=== PATIENT | female | born 1955 | race Caucasian/White ===

== ENCOUNTER 2016-11-25 13:29 | Observation (INO) | payer OTHER ==
--- NOTE | 2016-11-25 13:50 | EDPHY ---
H & P Stated Complaint: feels like is in afib since last night/has biventricular defibrillator Time Seen by Provider: 11/25/16 13:50 Source: Patient - Personal History Current Tetanus/Diphtheria Vaccine: Yes - Medical/Surgical History Hx Asthma: No Hx Chronic Respiratory Disease: No Hx Diabetes: No Hx Cardiac Disease: Yes Hx Renal Disease: No Hx Cirrhosis: No Hx Alcoholism: No Hx HIV/AIDS: No Hx Splenectomy or Spleen Trauma: No Other PMH: cradiac valves replaced -, afib with cardioversion//. nocturnal o2, has been using x 2 nights and evenings//. hyst, lumpectomy w radiation - Social History Smoking Status: Never smoked Constitutional: Initial Vital Signs Temperature (C) 36.4 C 11/25/16 13:38 Heart Rate 82 11/25/16 13:38 Respiratory Rate 18 11/25/16 13:38 Blood Pressure 120/73 11/25/16 13:38 O2 Sat (%) 99 11/25/16 13:38 O2 Delivery Mode Room Air Allergies/Adverse Reactions: No Known Allergies Allergy (Verified 11/25/16 13:36) Home Medications: Medication Instructions Recorded Acetaminophen [Tylenol 325mg (*)] 650 mg PO HS 11/25/16 Aspirin EC [Aspirin EC 81 mg (*)] 81 mg PO DAILY@1930 11/25/16 Carboxymethylcellulos/Glycerin 1 drop EACHEYE BID 11/25/16 [Refresh Optive Eye Drops] Carvedilol [Coreg (*)] 3.125 mg PO DAILY 11/25/16 Carvedilol [Coreg] 12.5 mg PO DAILY@18 11/25/16 Docusate Sodium [Colace 100 MG (*)] 100 mg PO HS 11/25/16 Herbals/Supplements -Info Only 1 ea PO DAILY 11/25/16 Levothyroxine [Synthroid 50 mcg 50 mcg PO DAILY06 11/25/16 (*)] [place]-3 Fatty Acids [Fish Oil 1000 1,000 mg PO BID 11/25/16 mg (*)] Sacubitril/Valsartan 24/26Mg 1 ea PO BID 11/25/16 [Entresto 24 mg/26 mg (RX)] Spironolactone [Aldactone 25 MG 12.5 mg PO DAILY 11/25/16 (*)] Vit C/Dl-E AC/Lut/Copper/Znox 1 each PO BID 11/25/16 [Preservision Softgel] diphenhydrAMINE [Benadryl 25 MG 25 mg PO HS 11/25/16 (*)] Medical Decision Making ED Course/Re-evaluation: CHIEF COMPLAINT: Atrial fibrillation HISTORY OF PRESENT ILLNESS: The patient is a 61-year-old female with history if mitral valve repair and pacamaker, presenting with atrial fibrillation according to her night monitor. The patient states she was unable to sleep last night. When she was lying on her left side she could feel a pounding sensation. No associated chest pain or shortness of breath. This morning took her blood pressure at 10:30 a.m. she was 110 systolically, her usual BP is 80/ 50. Pulse oximeter was erratic, she was found to have pulse of 91 at one point. She called her device monitor which showed patient had been in atrial fibrillation since 9:55 p.m. last night. The patient recently changed Entresto and was taken off Lasix. She is on Coreg. No anticoagulants. REVIEW OF SYSTEMS: A 10 point review of systems was performed and is negative with the exception of the elements mentioned in the history of present illness. PHYSICAL EXAM: HR, BP, O2 Sat, RR. Temp noted General Appearance: Alert, well hydrated, appropriate, and non-toxic appearing. Head: Atraumatic without scalp tenderness or obvious injury Eyes: Pupils equal, round, reactive to light and accommodation, EOMI, no trauma , no injection. Ears: Clear bilaterally, no perforation, normal landmarks Nose: Atraumatic, no rhinorrhea, clear. Throat: There is no erythema or exudates, no lesions, normal tonsils, mucus membranes moist. Neck: Supple, 2+ carotid upstroke, nontender, no lymphadenopathy. Respiratory: No retractions, no distress, no wheezes, and no accessory muscle use. Lungs are clear to auscultation bilaterally. Cardiovascular: Regular rate and rhythm, no murmurs, rubs, or gallops. Bilateral carotid, radial, dorsalis pedis, and posterior tibial pulses intact. Good capillary refill all extremities. Gastrointestinal: Abdomen is soft, nontender, non-distended, no masses, no rebound, no guarding, no peritoneal signs. Musculoskeletal: Normal active ROM of all extremities, atraumatic. Neurological: Alert, appropriate, and interactive. The patient has normal DTRs and non-focal cranial nerves, motor, sensory, and cerebellar exam. Skin: No rashes, good turgor, no nodules on palpation. Past medical history: cardiac valves replaced 12-14, Afib with cardioversion, nocturnal O2, Past surgical history: hysterectomy, lumpectomy w radiation Social history: . DIAGNOSTICS/PROCEDURES/CRITICAL CARE TIME: The 12 lead EKG was interpreted by myself. See hard copy and/or "tracemaster" electronic copy for interpretation. DIFFERENTIAL DIAGNOSIS: Includes but is not limited to atrial fibrillation, malfunction pacemaker, atrial tachycardia, ventricular tachycardia. MEDICAL DECISION MAKING: Patient with pacemaker found to be in atrial fibrillation since 9:55 p.m. according to her device. EKG is paced with partially atrial paced, partially ventricular paced, and partially un-paced. I paged Balbir Esquivel, patients stna. Patient has no associated chest pain or shortness of breath. Patient also tells me recent lab work shows anemia. She has not had a recent colonoscopy and takes 81mg Aspirin daily. Plan to check electrolytes and troponin. 2:25 p.m.: I spoke to Dr. De Leon, he finds it difficult to tell if patient is in A-fib based on EKG. He would like patient admitted for transesophageal echo because of mitral valve repair followed by cardioversion. 2:30 p.m.: I discussed findings with the patient and her . They agree with plan for admission. 2:35 p.m.: I spoke to the hospitalist, the patient will be admitted to Dr. Givens. 3:30 p.m.: I spoke to Dr. Fernandez, Cardiology who will consult on the patient. - Data Points Laboratory Results: Laboratory Results 11/25/16 14:15 11/25/16 14:15 11/25/16 11/25/16 14:15 14:15 WBC 6.58 10^3/uL 10^3/uL (3.80-9.50) RBC 3.86 10^6/uL L 10^6/uL (4.18-5.33) Hgb 11.9 g/dL L g/dL (12.6-16.3) Hct 35.3 % L % (38.0-47.0) MCV 91.5 fL fL (81.5-99.8) MCH 30.8 pg pg (27.9-34.1) MCHC 33.7 g/dL g/dL (32.4-36.7) RDW 14.5 % % (11.5-15.2) Plt Count 220 10^3/uL 10^3/uL (150-400) MPV 10.5 fL fL (8.7-11.7) Neut % (Auto) 64.3 % % (39.3-74.2) Lymph % (Auto) 19.1 % % (15.0-45.0) [place] % (Auto) 12.5 % % (4.5-13.0) Eos % (Auto) 2.9 % % (0.6-7.6) Baso % (Auto) 0.9 % % (0.3-1.7) Nucleat RBC Rel Count 0.0 % % (0.0-0.2) Absolute Neuts (auto) 4.23 10^3/uL 10^3/uL (1.70-6.50) Absolute Lymphs (auto) 1.26 10^3/uL 10^3/uL (1.00-3.00) Absolute Monos (auto) 0.82 10^3/uL H 10^3/uL (0.30-0.80) Absolute Eos (auto) 0.19 10^3/uL 10^3/uL (0.03-0.40) Absolute Basos (auto) 0.06 10^3/uL 10^3/uL (0.02-0.10) Absolute Nucleated RBC 0.00 10^3/uL 10^3/uL (0-0.01) Immature Gran % 0.3 % % (0.0-1.1) Immature Gran # 0.02 10^3/uL 10^3/uL (0.00-0.10) Sodium 133 mEq/L L mEq/L (134-144) Potassium 4.9 mEq/L mEq/L (3.5-5.2) Chloride 100 mEq/L mEq/L (97-110) Carbon Dioxide 21 mEq/l L mEq/l (22-31) Anion Gap 12 mEq/L mEq/L (8-16) BUN 22 mg/dL mg/dL (7-23) Creatinine 0.8 mg/dL mg/dL (0.6-1.0) Estimated GFR > 60 Glucose 96 mg/dL mg/dL (70-100) Calcium 9.5 mg/dL mg/dL (8.5-10.4) Magnesium 2.0 mg/dL mg/dL (1.6-2.3) Troponin I < 0.012 ng/mL ng/mL (0-0.034) Departure - Departure Disposition: [facility] Inpatient Acute Clinical Impression: Arrhythmia Qualifiers: Arrhythmia type: atrial fibrillation Atrial fibrillation type: unspecified Qualified Code(s): I48.91 - Unspecified atrial fibrillation Condition: Fair Report Scribed for: Riki Srivastava Report Scribed by: Ana Grimes Date of Report: 11/25/16 Time of Report: 14:06
--- NOTE | 2016-11-25 13:57 | CPEKG ---
Heart Rate: 82 RR Interval: 732 P-R Interval: 128 QRSD Interval: 154 QT Interval: 428 QTC Interval: 500 P [place]: 0 QRS [place]: 55 T Wave [place]: -44 EKG Severity - ABNORMAL ECG - EKG Impression: A-V DUAL-PACED COMPLEXES W/ SOME INHIBITION Electronically Signed By: Riki Srivastava 25-Nov-2016 21:03:46
[2016-11-25 14:32] LABS: % IMMATURE GRANULYOCYTES 0.3 % (0.0-1.1); ABSOLUTE IMMATURE GRANULOCYTES 0.02 10^3/uL (0.00-0.10); ADD DIFF? NO; ADD MORPH? NO; ADD SCAN? NO; ATYPICAL LYMPHOCYTE FLAG 10 (0-99); FRAGMENT RBC FLAG 0 (0-99); HEMATOCRIT 35.3 % (38.0-47.0); HEMOGLOBIN 11.9 g/dL (12.6-16.3); LEFT SHIFT FLG 0 (0-99); LIPEMIA HEMOLYSIS FLAG 80 (0-99); MEAN CELL HEMOGLOBIN 30.8 pg (27.9-34.1); MEAN CELL HEMOGLOBIN CONCENTR. 33.7 g/dL (32.4-36.7); MEAN CELL VOLUME 91.5 fL (81.5-99.8); MEAN PLATELET VOLUME 10.5 fL (8.7-11.7); PLATELET CLUMPS FLAG 0 (0-99); PLATELET COUNT 220 10^3/uL (150-400); RED BLOOD CELL COUNT 3.86 10^6/uL (4.18-5.33); RED CELL DISTRIBUTION WIDTH 14.5 % (11.5-15.2)
[2016-11-25 14:54] LABS: ANION GAP 12 mEq/L (8-16); CALCIUM 9.5 mg/dL (8.5-10.4); CARBON DIOXIDE 21 mEq/l (22-31); CHLORIDE 100 mEq/L (97-110); CREATININE 0.8 mg/dL (0.6-1.0); GLOMERULAR FILTRATION RATE > 60; GLUCOSE 96 mg/dL (70-100); POTASSIUM 4.9 mEq/L (3.5-5.2); SODIUM 133 mEq/L (134-144)
[2016-11-25 15:04] LABS: TROPONIN I < 0.012 ng/mL (0-0.034)
[2016-11-25] MEDS ORDERED: ACETAMINOPHEN 325 MG TAB PO PRN (15:30)
[2016-11-25] MEDS ORDERED: ONDANSETRON 4 MG/2 ML VIAL IVP PRN (15:30)
[2016-11-25] MEDS ORDERED: ONDANSETRON DISINTEGRATING 4 MG TAB PO PRN (15:30)
--- NOTE | 2016-11-25 16:13 | GHP ---
[f rep st] HISTORY AND PHYSICAL DATE OF ADMISSION: 11/25/2016 HISTORY OF PRESENT ILLNESS: The patient is a pleasant 61-year-old female with a history of mitral a nd tricuspid valve repair, as well as previous episodes of atrial fibrillation for which she underwe nt SHYAM cardioversion. Presents to the hospital today with new atrial fibrillation. She was feeling poorly last night, having a difficult time sleeping, having palpitations and noting irregularity in her pulse ox monitor. She has a dual-lead pacemaker/AICD; she transmitted it to [facility], and it was confirmed to be atrial fibrillation. She called her fitter placer who advised her to present to the emergency department. She denies orthopnea, PND, or lower extremity edema. She slept poorl y last night, which is uncommon for her. She does not have anginal-type symptoms. She has not had urgency, frequency, or dysuria. She does have a known EF of 20% to 25%, but has been without really any significant heart failure symptoms si nce earlier in the month, and she was started on Entresto by Dr. Chavez. No fever or chills. REVIEW OF SYSTEMS: Complete 10-point review of systems conducted and negative except as noted in th e HPI. PAST MEDICAL HISTORY: 1. Mitral valve repair. 2. Tricuspid valve repair. 3. Left bundle branch block. 4. Cardiomyopathy with EF of 20% to 25%. 5. Status post biventricular AICD/dual-chamber pacer. ALLERGIES: No known drug allergies. MEDICATIONS ARE: Carvedilol, spironolactone, sacubitril/valsartan (AKA Entresto), ondansetron, fish oil, Refresh, levothyroxine, Benadryl, PreserVision. SOCIAL HISTORY: Lives in [place]. No tobacco. No alcohol. FAMILY HISTORY: Reviewed and unremarkable. PHYSICAL EXAMINATION: VITAL SIGNS: Temp 36.6, blood pressure 110/80, pulse 71 irregularly irregula r, breathing 16 times a minute, 93% on room air. GENERAL: No acute distress. HEENT: Sclerae anic teric. Oropharynx clear. Mucous membranes moist. NECK: Supple without lymphadenopathy or JVD. L UNGS: Clear to auscultation bilaterally without crackles. HEART: S1, S2. Irregularly irregular. No significant murmurs are heard. ABDOMEN: Soft, nontender, nondistended. LOWER EXTREMITIES: Wit hout edema. Calves nontender. SKIN: Without rash. NEUROLOGIC: Nonfocal. LABORATORY DATA: White count 6.6, hematocrit 35.3, platelets are 220,000. Sodium 133, potassium 4. 9, chloride 100, bicarb 21, BUN 22, creatinine 0.8. Troponin less than 0.012. I have discussed the case Dr. Riki Srivastava. EKG, interpreted by me, shows an AV dual-paced rhythm t hat is somewhat irregular. Watching on the monitor when I was in the room, there is a fair amount o f irregularity. ASSESSMENT/PLAN: A 61-year-old female with complex cardiac history presents with atrial fibrillatio n. 1. Atrial fibrillation: She is currently rate controlled. It sounds like, given her cardiomyopath y, the ideal plan is to keep her in sinus rhythm. I will make her n.p.o., SHYAM cardioversion has bee n recommended by Cardiology. She is yet to be seen by the solar sales consultant. 2. Anemia: This is stable. It sounds like it has been worked up in the past as an outpatient. Tita jean-baptiste has had SPEP sent. 3. Chronic systolic heart failure: The patient is euvolemic and not in heart failure exacerbation today. 4. Hyponatremia: Mild. Will follow. 5. Prophylaxis: Risk is moderate. I anticipate overnight stay. If she stays longer, then pharmac ologic prophylaxis would be indicated. 6. The patient has a low [id number] score, but I think this is probably valvular atrial fibrillat ion, so she may be candidate for anticoagulation irrespective of her [id number] score. I will def er this to Cardiology. DISPOSITION: Observation status. /[id number]/MODL
[2016-11-25] MEDS ORDERED: CARVEDILOL 6.25 MG TAB PO SCH (18:00)
[2016-11-25] MEDS ORDERED: NON-FORMULARY NEW DRUG (Carvedilol [Coreg] 12.5 MG) PO SCH (18:00)
[2016-11-25] MEDS: PRESERVISION AREDS2 FORMULA EYE VIT 1 EACH PO SCH (19:05)
[2016-11-25] MEDS ORDERED: ASPIRIN EC 81 MG TAB PO SCH (19:30)
[2016-11-25] MEDS ORDERED: CARBOXYMETHYLCELLULOS EACHEYE SCH (21:00)
[2016-11-25] MEDS ORDERED: DOCUSATE SODIUM 100 MG CAP PO SCH (21:00)
[2016-11-25] MEDS ORDERED: [UNRECOGNIZED DRUG - OTHER] EACHEYE SCH (21:00)
[2016-11-25] MEDS ORDERED: NON-FORMULARY NEW DRUG (Vit C/Dl-E Ac/Lut/Copper/Znox [Preservision Softgel] 1 EACH) PO SCH (21:00)
[2016-11-25] MEDS ORDERED: diphenhydrAMINE 25 MG CAP PO SCH (21:00)
[2016-11-25] MEDS ORDERED: GLYCERIN EACHEYE SCH (21:00)
[2016-11-25] MEDS: OMEGA-3 FATTY ACIDS 1,000 MG CAP PO SCH (21:02)
[2016-11-25] MEDS: SACUBITRIL/VALSARTAN 24/26MG 1 EA TAB PO SCH (21:04)
[2016-11-25] MEDS: TEARS/DEXTRAN 70/HYPROMELLOSE 15 ML OPHT.BTL EACHEYE SCH (21:04)
[2016-11-26] MEDS ORDERED: LEVOTHYROXINE 50 MCG TAB PO SCH (06:00)
[2016-11-26 07:35] LABS: INR 1.08 (0.83-1.16); PROTIME(PATIENT) 13.9 SEC (12.0-15.0)
[2016-11-26] MEDS: PRESERVISION AREDS2 FORMULA EYE VIT 1 EACH PO SCH ×2 (08:35→14:52)
[2016-11-26] MEDS ORDERED: HEPARIN 5,000 UNIT/0.5 ML SYR IV ONE (09:00)
[2016-11-26] MEDS ORDERED: Herbals/Supplements -Info Only PO SCH (09:00)
[2016-11-26] MEDS ORDERED: PROPOFOL 200 MG/20 ML VIAL ONE ×3 (09:28→09:30)
[2016-11-26] MEDS ORDERED: ATROPINE SULFATE 1 MG/10 ML SYR ONE (09:29)
[2016-11-26] MEDS: OMEGA-3 FATTY ACIDS 1,000 MG CAP PO SCH ×2 (09:34→14:50)
[2016-11-26] MEDS: SACUBITRIL/VALSARTAN 24/26MG 1 EA TAB PO SCH ×2 (09:34→14:49)
[2016-11-26] MEDS: CARVEDILOL 3.125 MG TAB PO SCH ×2 (09:34→14:51)
[2016-11-26] MEDS: SPIRONOLACTONE 25 MG TAB PO SCH ×2 (09:35→14:52)
[2016-11-26] MEDS: TEARS/DEXTRAN 70/HYPROMELLOSE 15 ML OPHT.BTL EACHEYE SCH (09:35)
--- NOTE | 2016-11-26 10:03 | CPEKG ---
Heart Rate: 64 RR Interval: 938 P-R Interval: 160 QRSD Interval: 134 QT Interval: 476 QTC Interval: 491 P [place]: 87 QRS [place]: -23 T Wave [place]: 121 EKG Severity - ABNORMAL ECG - EKG Impression: A-V DUAL-PACED RHYTHM WITH SOME INHIBITION Electronically Signed By: Shaan Caal 27-Nov-2016 12:14:43
--- NOTE | 2016-11-26 10:25 | CPIP ---
[f rep st] INVASIVE CARDIAC PROCEDURE PROCEDURES PERFORMED: 1. Transesophageal echocardiographic study. 2. Cardioversion. The patient gave informed consent for transesophageal echocardiograph and a cardioversion. I explained to the patient and her about the risk of stroke even if we have an unremarkable transesophageal echocardiographic study. They understand that there is a risk of stroke and w ith cardioversion. They understand there is a risk of infection, perforation with the transesophage al procedure. They would like to proceed. They accept the risk of an anesthetic agent. All their questions have been answered, and they have agreed to do full anticoagulation for 5 weeks. She woul d like not to continue beyond that, but I would recommend she take it long-term; however, that issue is going to be discussed with her and her primary care physicians. DESCRIPTION OF PROCEDURE: At this time, we proceeded. Transesophageal echocardiogram: She has poor LV systolic function with an ejection fraction in the range of 20%. She had a dilated left ventricle. She has a hugely enlarged left atrium. She has cortes d mitral valve procedure. She has an oversewn left atrial appendage. There were no contraindicatio ns to proceeding with cardioversion found. She tolerated that procedure well. DC cardioversion: She was shocked at 360 watt seconds and converted from atrial fibrillation to nor mal sinus rhythm. The patient's pacemaker was interrogated by the pacemaker rep who also checked her after cardioversi on and confirmed both that she was in atrial fibrillation and that she was now in sinus rhythm. She is going to proceed to having an optimization for her device now, and she has an appointment wit Dr. Chavez for followup this afternoon. Because of how difficult it is for them to seem to agree on whether or not she should take a novel o ral anticoagulant or should she take Coumadin, I have written prescriptions for both approaches, and they are going to decide over time which medicine they want to take. She wants to use a novel agen t. He wants her to use Coumadin and, if she uses Coumadin, they both understand that they will have to bridge starting today. Prior to the procedure, she received 5000 units of IV heparin half an ho ur prior to transesophageal echocardiogram. She had no complications from that. All their questions have been answered. She has woken up from anesthesia excellently. /[id number]/MODL
[2016-11-26 12:46] VITALS: BP 121/82; PULSE 62; RESP 20; TEMP 97.6; O2SAT 98
--- NOTE | 2016-11-26 13:24 | CPEKG ---
Heart Rate: 86 RR Interval: 698 P-R Interval: 168 QRSD Interval: 106 QT Interval: 412 QTC Interval: 493 QRS [place]: 25 T Wave [place]: 78 EKG Severity - ABNORMAL ECG - EKG Impression: ATRIAL-PACED COMPLEXES EKG Impression: LOW VOLTAGE IN FRONTAL LEADS EKG Impression: REPOL ABNRM, PROBABLE ISCHEMIA, ANT-LAT LEADS EKG Impression: ST ELEVATION, CONSIDER INFERIOR INJURY EKG Impression: ST/T WAVE CHANGES ARE NEW IN COMPARISON TO PRIOR Electronically Signed By: Shaan Caal 27-Nov-2016 12:15:19
--- NOTE | 2016-11-26 14:32 | GDS ---
[f rep st] DISCHARGE SUMMARY DIAGNOSES: 1. Atrial fibrillation. 2. History of mitral and tricuspid valve repairs. 3. Left bundle branch block. 4. Severe cardiomyopathy. HOSPITAL COURSE: This is a 61-year-old female with a known cardiomyopathy who presents with atrial fibrillation. She underwent a SHYAM cardioversion which was successful in putting her back into sinus rhythm. This was done by Dr. Binu Fernandez. She will be discharged with appropriate cardiac medica tions including Eliquis, Coreg, Aldactone, aspirin, valsartan. She is comfortable with this plan. She will follow up with her primary animal nutritionist, Dr. Esquivel. She does have a severe cardiomyopathy as well as some valvular disease. She is on also appropriate medications for this. She also has an AICD and biventricular pacemaker which was adjusted during [facility] hospitalization. /[id number]/MODL
--- NOTE | 2016-11-28 10:47 | ECHO ---
[id number] + + [address] : : [place] [address] : : [phone] + + Transesophageal Echocardiographic Report + + :Name: DIANNA HUGHES Study Date: 11/26/2016 09:24 AM : : Hospital Admission Number: [id number] : :: 1955 Gender: Female : :Age: 61 yrs Race: WH,White : :Reason For Study: Atrial Fibrillation : + + MMode/2D Measurements \T\ Calculations IVSd: 0.92 cm LVIDd: 5.2 cmFS: 9.5 % LVLd ap4: 8.0 cm LVPWd: 0.92 cm LVIDs: 4.7 cmEDV(Teich): 127.9 mlEDV(MOD-sp4): 81.0 ml ESV(Teich): 101.3 mlLVLs ap4: 6.9 cm EF(Teich): 20.8 % ESV(MOD-sp4): 59.0 ml EF(MOD-sp4): 27.2 % SV(MOD-sp4): 22.0 ml Normal Measurement Values: + + :LVIDd (3.5-5.7cm) IVSd (0.6-1.1cm) LVPWd (0.6-1.1cm) Aortic Root (2.0-3.7cm)Left Atrium (1.5-4.0cm): :LV Vol(d) (76-115ml) LV Vol(s) (29-48ml) Ejec Fraction (50-65%)PV Joshua (0.6- 1.2m/s) TV Joshua (0.4-1.0m/s) : :MV E Joshua (0.8-1.0m/s)MV A Joshua (0.3-1.0m/s)LVOT Joshua (0.7-1.2m/s) Asc Ao Joshua ( 0.9-1.8m/s) : + + Left Ventricle EF estimate is 20-25%. Atria The left atrial appendage has been oversewn. Mitral Valve An annuloplasty ring is noted in the mitral position. Tricuspid Valve An annuloplasty ring is noted in the tricuspid position. Aortic Valve The aortic valve is trileaflet. Conclusion A 2D transesophageal echocardiogram with color flow Doppler was performed. Proceeded with successful elective DC cardioversion. EF estimate is 20-25%. The left atrial appendage has been oversewn. An annuloplasty ring is noted in the mitral position. An annuloplasty ring is noted in the tricuspid position. Final Reading Physician: Ivette Abarca signed on 11/28/2016 10:46 AM Ordering Physician: Juan Manuel Givens Performed By: Jean Marie Fernandez MD
== END 2016-11-26 15:56 | disposition home or self-care (01) ==
LOC: F2W 15:34
PROVIDERS: ADMIT Internal Medicine; ATTEND Student in an Organized Health Care Education/Training Program
PROC: B246ZZ4 Ultrasonography of Right and Left Heart, Transesophageal (ICD-10-PCS; principal; 2016-11-25)
PROC: 5A2204Z Restoration of Cardiac Rhythm, Single (ICD-10-PCS; principal; 2016-11-25)
DX: I48.91 Unspecified atrial fibrillation (principal); I44.7 Left bundle-branch block, unspecified; I42.9 Cardiomyopathy, unspecified; Z95.810 Presence of automatic (implantable) cardiac defibrillator
CPT/HCPCS: 92960; 93005; 93312; 99285; G0378; J0461; J2704

== ENCOUNTER 2017-02-10 08:30 | Inpatient (IN) | payer OTHER ==
[2017-02-10 11:57] LABS: % IMMATURE GRANULYOCYTES 0.2 % (0.0-1.1); ABSOLUTE IMMATURE GRANULOCYTES 0.01 10^3/uL (0.00-0.10); ADD DIFF? NO; ADD MORPH? NO; ADD SCAN? NO; ATYPICAL LYMPHOCYTE FLAG 0 (0-99); FRAGMENT RBC FLAG 0 (0-99); HEMATOCRIT 35.4 % (38.0-47.0); HEMOGLOBIN 11.7 g/dL (12.6-16.3); LEFT SHIFT FLG 0 (0-99); LIPEMIA HEMOLYSIS FLAG 80 (0-99); MEAN CELL HEMOGLOBIN CONCENTR. 33.1 g/dL (32.4-36.7); MEAN CELL VOLUME 96.7 fL (81.5-99.8); MEAN PLATELET VOLUME 11.2 fL (8.7-11.7); PLATELET CLUMPS FLAG 60 (0-99); PLATELET COUNT 165 10^3/uL (150-400); RED BLOOD CELL COUNT 3.66 10^6/uL (4.18-5.33); RED CELL DISTRIBUTION WIDTH 13.7 % (11.5-15.2)
[2017-02-10 12:05] LABS: INR 1.25 (0.83-1.16); PROTIME(PATIENT) 15.7 SEC (12.0-15.0)
[2017-02-10 12:06] LABS: APTT 29.3 SEC (23.0-38.0)
[2017-02-10 12:10] LABS: ANION GAP 13 mEq/L (8-16); CALCIUM 9.7 mg/dL (8.5-10.4); CARBON DIOXIDE 27 mEq/l (22-31); CHLORIDE 102 mEq/L (97-110); CREATININE 0.9 mg/dL (0.6-1.0); GLOMERULAR FILTRATION RATE > 60; GLUCOSE 89 mg/dL (70-100); MAGNESIUM 2.1 mg/dL (1.6-2.3); POTASSIUM 4.5 mEq/L (3.5-5.2); SODIUM 142 mEq/L (134-144)
--- NOTE | 2017-02-10 12:30 | CPEKG ---
Heart Rate: 65 RR Interval: 923 P-R Interval: 164 QRSD Interval: 124 QT Interval: 468 QTC Interval: 487 P [place]: 72 QRS [place]: 24 EKG Severity - ABNORMAL ECG - EKG Impression: ATRIAL-SENSED VENTRICULAR-PACED RHYTHM Electronically Signed By: Shaan Caal 10-Feb-2017 13:15:59
[2017-02-10] MEDS: DOFETILIDE 0.25 MG CAP PO SCH ×2 (13:33→20:51)
--- NOTE | 2017-02-10 16:04 | PDCARPN ---
Cardiology Progress Note Chief Complaint: PAF/NICM Assessment/Plan: Assessment: 61-y/o F with PMH MV repair in 2014, NICM EF 25%, PAF, previous br CA, bi-V ICD , with recent bouts of AF requiring DCCV. Last one done 11/26/16. Admitted for Tikosyn titration. #. PAF: here for Tikosyn titration being started at 250 mcg BID as CrCl >60 plan for surveillance ECGs 2 hours post-dosing #. NICM with EF 25%: back on Lasix, and also on Entresto, Coreg, and Spironolactone #. DVT ppx: on Eliquis and pt may ambulate while in house #. LOS: >48 hours for titration of high risk meds 02/10/17 16:00 Subjective: Walking 2 miles daily. No cp, dyspnea, peripheral edema, palps. Notes hip pain. Time Spent With Patient: 25 minutes with >50% spent on counseling Objective: Vital Signs (8 Hrs) Temp Pulse Resp BP Pulse Ox 02/10/17 15:23 98.3 F 69 18 113/66 92 02/10/17 10:15 97.9 F 69 16 121/66 H 94 Intake/Output (24 Hrs) 02/09/17 02/10/17 02/11/17 05:59 05:59 05:59 Other: Weight 74.4 kg Result Diagrams: 02/10/17 11:50 02/10/17 11:50 EKG: A sensed, V-paced Telemetry: A-sensed, V-paced Echocardiogram: 10/31/16EF 25, restrictive pattern, mild dil RV, mild HK RV, LA severely dil, RA mod dilated, mitral annuloplasty ring, mild MR, mild-mod TR, RVSP 65 - Physical Exam Constitutional: healthy appearing, no apparent distress Ears, Nose, Mouth, Throat: moist mucous membranes Cardiovascular: regular rate and rhythm Skin: no rashes, warm, no edema Musculoskeletal: asymmetric calves Psychiatric: cooperative, interactive ICD10 Worksheet Patient Problems: Problems Problem Status Onset Cleft leaflet of mitral valve Acute Paroxysmal atrial fibrillation Acute S/P mitral valve repair Acute Arrhythmia Acute Hypertension Acute
--- NOTE | 2017-02-10 16:25 | CPEKG ---
Heart Rate: 66 RR Interval: 909 P-R Interval: 160 QRSD Interval: 126 QT Interval: 500 QTC Interval: 524 P [place]: 70 QRS [place]: 24 T Wave [place]: -46 EKG Severity - ABNORMAL ECG - EKG Impression: ATRIAL-SENSED VENTRICULAR-PACED RHYTHM Electronically Signed By: Shaan Caal 10-Feb-2017 16:35:54
[2017-02-10] MEDS: CARVEDILOL 6.25 MG TAB PO SCH (18:54)
[2017-02-10] MEDS: OMEGA-3 FATTY ACIDS 1,000 MG CAP PO SCH (20:51)
[2017-02-10] MEDS: ASPIRIN EC 81 MG TAB PO SCH (20:51)
[2017-02-10] MEDS: ACETAMINOPHEN 325 MG TAB PO SCH (20:51)
[2017-02-10] MEDS: DOCUSATE SODIUM 100 MG CAP PO SCH (20:51)
[2017-02-10] MEDS: PRESERVISION AREDS2 FORMULA EYE VIT 1 EACH PO SCH (20:51)
[2017-02-10] MEDS: diphenhydrAMINE 25 MG CAP PO SCH (20:51)
[2017-02-10] MEDS: APIXABAN 5 MG TAB PO SCH (20:51)
[2017-02-10] MEDS: SACUBITRIL/VALSARTAN 24/26MG 1 EA TAB PO SCH (20:57)
[2017-02-10] MEDS ORDERED: NON-FORMULARY NEW DRUG (Vit C/Dl-E Ac/Lut/Copper/Znox [Preservision Softgel] 1 EACH) PO SCH (21:00)
--- NOTE | 2017-02-10 23:08 | CPEKG ---
Heart Rate: 61 RR Interval: 984 P-R Interval: 160 QRSD Interval: 124 QT Interval: 516 QTC Interval: 520 P [place]: 85 QRS [place]: 61 T Wave [place]: -45 EKG Severity - ABNORMAL ECG - EKG Impression: ATRIAL-SENSED VENTRICULAR-PACED RHYTHM Electronically Signed By: Alexey Nelson 11-Feb-2017 07:33:42
[2017-02-11 05:10] LABS: INR 1.2 (0.83-1.16); PROTIME(PATIENT) 15.2 SEC (12.0-15.0)
[2017-02-11 05:22] LABS: ANION GAP 9 mEq/L (8-16); CALCIUM 9.6 mg/dL (8.5-10.4); CARBON DIOXIDE 28 mEq/l (22-31); CHLORIDE 101 mEq/L (97-110); GLOMERULAR FILTRATION RATE 56; GLUCOSE 91 mg/dL (70-100); MAGNESIUM 2.2 mg/dL (1.6-2.3); POTASSIUM 4.1 mEq/L (3.5-5.2); SODIUM 138 mEq/L (134-144)
[2017-02-11] MEDS: LEVOTHYROXINE 50 MCG TAB PO SCH (05:43)
[2017-02-11] MEDS: DOFETILIDE 0.25 MG CAP PO SCH (08:48)
[2017-02-11] MEDS: APIXABAN 5 MG TAB PO SCH ×2 (08:48→21:04)
[2017-02-11] MEDS: CARVEDILOL 3.125 MG TAB PO SCH (08:49)
[2017-02-11] MEDS: OMEGA-3 FATTY ACIDS 1,000 MG CAP PO SCH ×2 (08:49→21:04)
[2017-02-11] MEDS: FUROSEMIDE 20 MG TAB PO SCH (08:49)
[2017-02-11] MEDS: PRESERVISION AREDS2 FORMULA EYE VIT 1 EACH PO SCH ×2 (08:50→21:05)
[2017-02-11] MEDS: SPIRONOLACTONE 25 MG TAB PO SCH (08:51)
[2017-02-11] MEDS: SACUBITRIL/VALSARTAN 24/26MG 1 EA TAB PO SCH ×2 (08:51→21:03)
[2017-02-11] MEDS: DOFETILIDE 0.125 MG CAP PO SCH ×2 (09:17→21:03)
--- NOTE | 2017-02-11 11:29 | CPEKG ---
Heart Rate: 64 RR Interval: 938 P-R Interval: 172 QRSD Interval: 118 QT Interval: 508 QTC Interval: 525 P [place]: 77 QRS [place]: 42 T Wave [place]: -11 EKG Severity - ABNORMAL ECG - EKG Impression: ATRIAL-SENSED VENTRICULAR-PACED RHYTHM Electronically Signed By: Jose Martin Gold 11-Feb-2017 13:26:45
--- NOTE | 2017-02-11 14:09 | PDCARPN ---
Cardiology Progress Note Chief Complaint: PAF Assessment/Plan: Assessment: 61-y/o F with PMH MV repair in 2013, NICM EF 25%, PAF, previous br CA, bi-V ICD , with recent bouts of AF requiring DCCV. Last one done 11/26/16. Admitted for Tikosyn titration. #. PAF: here for Tikosyn titration started at 250 mcg BID as CrCl >60/ dose being reduced to 125 mcg BID due to JT prolongation plan for surveillance ECGs 2 hours post-dosing #. NICM with EF 25%: back on Lasix, and also on Entresto, Coreg, and Spironolactone #. DVT ppx: on Eliquis and pt may ambulate while in house #. LOS: >48 hours for titration of high risk meds 02/11/17 14:06 Subjective: Slight SHAW yesterday but otherwise feeling well. Fatigued. Objective: Vital Signs (8 Hrs) Temp Pulse Resp BP Pulse Ox 02/11/17 11:32 97.4 F 65 16 109/67 92 02/11/17 08:51 100/54 L 02/11/17 08:49 71 100/54 L 02/11/17 08:10 97.8 F 62 16 100/54 L 90 L Intake/Output (24 Hrs) 02/10/17 02/11/17 02/12/17 05:59 05:59 05:59 Intake Total 250 Output Total 150 1300 Balance 100 -1300 Intake: Oral (ml) 250 Output: Urine (ml) 150 1300 Toilet 150 1300 Other: Weight 74.4 kg Number of Voids Toilet 1 Result Diagrams: 02/10/17 11:50 02/11/17 03:48 EKG: personally interpreted A-sensed, V-paced with JT<400 - Physical Exam Constitutional: healthy appearing, no apparent distress Ears, Nose, Mouth, Throat: moist mucous membranes Cardiovascular: regular rate and rhythm, systolic murmur Respiratory: clear to auscultate bilat Skin: no rashes, warm, no edema Psychiatric: cooperative, interactive ICD10 Worksheet Patient Problems: Problems Problem Status Onset Cleft leaflet of mitral valve Acute Paroxysmal atrial fibrillation Acute S/P mitral valve repair Acute Arrhythmia Acute Hypertension Acute
[2017-02-11] MEDS: CARVEDILOL 6.25 MG TAB PO SCH (18:28)
[2017-02-11] MEDS: ACETAMINOPHEN 325 MG TAB PO SCH (21:04)
[2017-02-11] MEDS: DOCUSATE SODIUM 100 MG CAP PO SCH (21:04)
[2017-02-11] MEDS: ASPIRIN EC 81 MG TAB PO SCH (21:05)
[2017-02-11] MEDS: diphenhydrAMINE 25 MG CAP PO SCH (21:05)
--- NOTE | 2017-02-11 23:05 | CPEKG ---
Heart Rate: 65 RR Interval: 923 QRSD Interval: 144 QT Interval: 520 QTC Interval: 541 P [place]: 0 QRS [place]: 92 T Wave [place]: -79 EKG Severity - ABNORMAL ECG - EKG Impression: ATRIAL-VENTRICULAR DUAL-PACED COMPLEXES EKG Impression: JT interval 400 ms Electronically Signed By: Jose Martin Gold 12-Feb-2017 06:19:04
[2017-02-12] MEDS ORDERED: DOFETILIDE 0.125 MG CAP PO SCH
[2017-02-12] MEDS: LEVOTHYROXINE 50 MCG TAB PO SCH (06:09)
[2017-02-12 08:29] VITALS: PULSE 72; RESP 13; TEMP 98; O2SAT 91
[2017-02-12] MEDS: OMEGA-3 FATTY ACIDS 1,000 MG CAP PO SCH (09:22)
[2017-02-12] MEDS: SACUBITRIL/VALSARTAN 24/26MG 1 EA TAB PO SCH (09:22)
[2017-02-12] MEDS: PRESERVISION AREDS2 FORMULA EYE VIT 1 EACH PO SCH (09:22)
[2017-02-12] MEDS: CARVEDILOL 3.125 MG TAB PO SCH (09:23)
[2017-02-12] MEDS: FUROSEMIDE 20 MG TAB PO SCH (09:23)
[2017-02-12] MEDS: APIXABAN 5 MG TAB PO SCH (09:23)
[2017-02-12] MEDS: SPIRONOLACTONE 25 MG TAB PO SCH (09:23)
[2017-02-12] MEDS: DOFETILIDE 0.125 MG CAP PO SCH (09:24)
[2017-02-12 09:25] VITALS: BP 97/60
--- NOTE | 2017-02-12 10:55 | CPEKG ---
Heart Rate: 70 RR Interval: 857 P-R Interval: 172 QRSD Interval: 120 QT Interval: 456 QTC Interval: 493 P [place]: 71 QRS [place]: 48 T Wave [place]: -48 EKG Severity - ABNORMAL ECG - EKG Impression: ATRIAL-SENSED VENTRICULAR-PACED RHYTHM Electronically Signed By: Alexey Nelson 12-Feb-2017 14:17:05
--- NOTE | 2017-02-12 19:14 | GDS ---
[f rep st] DISCHARGE SUMMARY DISCHARGE DIAGNOSES: 1. Paroxysmal atrial fibrillation, status post Tikosyn titration in this admission. 2. History of nonischemic cardiomyopathy with EF last measured at 25%. 3. History of MV repair in 2013. 4. History of previous breast cancer. 5. History of BiV ICD implantation. PROCEDURES: Serial EKGs. BRIEF HISTORY: Please see dictated H and P from our office for complete details. In brief, the haim oreilly is a 61-year-old female, who has a history of MV repair in 2013, and nonischemic cardiomyopathy with EF last measured at 25%, paroxysmal atrial fibrillation, BiV ICD, who was admitted for Tikosyn titration. She has had increasing bouts of atrial fibrillation requiring cardioversion. Her last cardioversion was on 11/26/2016. The patient was offered Tikosyn titration, to which she agreed. I nitial dose was 250 mcg b.i.d.. This caused JT prolongation, and therefore her dose was changed to 125 mcg p.o. twice daily. Her JT interval remained stable. She has tolerated the medication well. She will be discharged on that dose. PHYSICAL EXAM: VITAL SIGNS: On day of discharge, blood pressure 97/60, heart rate 72, respirations 13, O2 saturation 91% on room air. GENERAL: She is a very pleasant female in no apparent distress . EYES: PERRL. HEART: Regular rate and rhythm. LUNGS: Clear. EXTREMITIES: Without edema. LABORATORY DATA: CBC with WBC 4.79, hemoglobin 11.7, hematocrit 35.4, platelet count 165. BMP with sodium 138, potassium 4.1, chloride 101, CO2 28, BUN 29, creatinine 1, glucose of 91, INR of 1.2. Telemetry with a paced rhythm and occasional PVCs. DIET: The patient is advised on a low-salt diet for heart failure management. DISCHARGE MEDICATIONS: Please see med reconciliation. She is being discharged on all her home medi cations. This includes: Celebrex, furosemide, carvedilol, aspirin, apixaban, Colace, diphenhydrami ne, PreserVision soft gel, spironolactone, Entresto, fish oil, levothyroxine. Her new medication is Tikosyn at 125 mcg p.o. b.i.d. FOLLOWUP INSTRUCTIONS: 1. Follow up with an EKG in 3 months' time or sooner. 2. Follow up with Dr. Villavicencio as scheduled. /[id number]/MODL
== END 2017-02-12 11:45 | disposition home or self-care (01) | DRG 310 ==
LOC: F2W 10:00
PROVIDERS: ADMIT Internal Medicine Cardiovascular Disease; ATTEND Internal Medicine Cardiovascular Disease
DX: I48.0 Paroxysmal atrial fibrillation (principal); I42.9 Cardiomyopathy, unspecified; Z85.3 Personal history of malignant neoplasm of breast; Z95.810 Presence of automatic (implantable) cardiac defibrillator

== ENCOUNTER → 2017-03-30 | Outpatient (CLI) | payer OTHER ==
[~2017-03-30] MED LIST: DEPO METHYLPREDNISOLONE 40 MG/ML SDV ONE; IOPAMIDOL (ISOVUE 370) 100 ML BTL IV ONE; LIDOCAINE 1% 300 MG/30 ML SDV ONE; ROPIVACAINE HCL 150 MG/30 ML INJ ONE
== END ==
LOC: FIMAGING 10:17
PROVIDERS: ATTEND Orthopaedic Surgery
PROC: 3E0U33Z Introduction of Anti-inflammatory into Joints, Percutaneous Approach (ICD-10-PCS; principal; 2017-03-30)
PROC: 3E0U3BZ Introduction of Anesthetic Agent into Joints, Percutaneous Approach (ICD-10-PCS; principal; 2017-03-30)
DX: M25.552 Pain in left hip (principal)
CPT/HCPCS: J1030; J2795; Q9967

== ENCOUNTER → 2017-04-07 | Outpatient (CLI) | payer OTHER | LOC: CIMAGING 10:12 | PROVIDERS: ATTEND Internal Medicine | DX: Z12.31 Encounter for screening mammogram for malignant neoplasm of breast (principal) | CPT/HCPCS: G0202 ==

== ENCOUNTER 2017-12-09 09:56 | Inpatient (IN) | payer OTHER ==
[~2017-12-09 09:56] MED LIST changes: -DEPO METHYLPREDNISOLONE 40 MG/ML SDV ONE; -IOPAMIDOL (ISOVUE 370) 100 ML BTL IV ONE; -LIDOCAINE 1% 300 MG/30 ML SDV ONE; +ROPIVACAINE 0.2% 80 MG, EPINEPHrine 0.2 MG, KETOROLAC TROMETHAMINE 30 MG in SYRINGE 0 ML IU ONE; -ROPIVACAINE HCL 150 MG/30 ML INJ ONE; +TRANEXAMIC ACID 3,000 MG in NS (SYRINGE) 50 ML IRR ONE; +TRANEXAMIC ACID 3,000 MG/50 ML BAG IRR ONE
[2017-12-09] MEDS ORDERED: FAMOTIDINE 20 MG TAB PO ONE (10:07)
[2017-12-09] MEDS ORDERED: DEXAMETHASONE 4 MG/ML VIAL IVP ONE (10:07)
[2017-12-09] MEDS ORDERED: ACETAMINOPHEN 325 MG TAB PO ONE (10:07)
[2017-12-09] MEDS ORDERED: ceFAZolin 2 GM/DEXTROSE 100 ML IV ONE (10:07)
[2017-12-09] MEDS ORDERED: LR 1,000 ML IV ONE (10:09)
--- NOTE | 2017-12-09 11:30 | PDANEPAE ---
ANE History of Present Illness 62 year old female with complicated PMHx presents for total hip arthroplasty. Patient with known cardiomyopathy (AICD present, but not pacer dependent), Pulmonary HTN (utilizes home O2 at night), hypotension (cardiology comments to keep systolic BP<100mmHg), hypothyroidism and breast cancer. ANE Past Medical History - Cardiovascular History Hx Hypertension: Yes Hx Arrhythmias: No Hx Chest Pain: No Hx Coronary Artery / Peripheral Vascular Disease: No Hx CHF / Valvular Disease: Yes Hx Palpitations: No Cardiovascular History Comment: mitral regurgitation. cardiomyopathy. tricupsid regurgitation. secondary pulm htn. pt BP runs 80/[address] is normal for pt. Dr Esquivel wants to keep SBP less than 100 - Pulmonary History Hx COPD: No Hx Asthma/Reactive Airway Disease: No Hx Recent Upper Respiratory Infection: No Hx Oxygen in Use at Home: Yes O2 in Use at Home (L/minute): 1L at night Hx Sleep Apnea: No Sleep Apnea Screening Result - Last Documented: Negative Pulmonary History Comment: PHTN - Neurologic History Hx Cerebrovascular Accident: No Hx Seizures: No Hx Dementia: No - Endocrine History Hx Diabetes: No Hypothyroid: Yes Hyperthyroid: No Obesity: no Endocrine History Comment: hypothyroidism - Renal History Hx Renal Disorders: No - Liver History Hx Hepatic Disorders: No - Neurological & Psychiatric Hx Hx Neurological and Psychiatric Disorders: No - Cancer History Hx Cancer: Yes Cancer History Comment: right breast with lumpectomy in 1988 with radiation and lumpectomy 29 lymph nodes removed - Congenital Disorder History Hx Congenital Disorders: No - GI History Hx Gastrointestinal Disorders: No Gastrointestinal History Comment: takes a stool softner every night - Other Health History Other Health History: NONE - Chronic Pain History Chronic Pain: No (left shoulder and left hip pain d/t arthritis, L hip) - Surgical History Prior Surgeries: wisdom teeth extracted at 16 years old. tubal at 27 years old. right breast lumpectomy and 29 lymph nodes with radiation in 1988. 2002 hysterectomy lap abd. may 2014 annulus to mitral and tricuspid valve. november 2014 aicd/ppm ANE Review of Systems Review of Systems: - Exercise capacity Exercise capacity: >=4 METS (typically walks 40 minutes/day per cardiology instruction, but stopped 6 weeks ago due to hip painl) METS (RN): 4 METS - Pacemaker Pacemaker Type: Permanent Pacer/Defib (Per conversation with [employer] medical officer, no need for interogation of AICD/pacer. Patient is not pacer dependent, per protocol magnet applied to AICD at start of surgery to de- activate tachydysrhythmia function, will remove at end of procedure. ) Pacemaker [employer] Roller: [employer] Pacemaker Model: quadra assura [id number] Pacemaker Mode: DDDR Date Pacemaker Last Checked: 07/04/17 ANE Patient History - Allergies Allergies/Adverse Reactions: No Known Allergies Allergy (Verified 11/25/16 13:36) - Home Medications Home medications: home medication list seen and reviewed Home Medications: Acetaminophen [Tylenol 325mg (*)] 650 mg PO HS 11/25/16 [Last Taken 12/09/17] Aspirin EC [Aspirin EC 81 mg (*)] 81 mg PO HS 11/25/16 [Last Taken 1 Week Ago ~ 12/02/17] Carvedilol [Coreg (*)] 3.125 mg PO DAILY 11/25/16 [Last Taken 12/09/17] Docusate Sodium [Colace 100 MG (*)] 100 mg PO HS 11/25/16 [Last Taken 2 Weeks Ago ~11/25/17] Herbals/Supplements -Info Only 1 ea PO DAILY 11/25/16 [Last Taken 2 Weeks Ago ~ 11/25/17] Levothyroxine [Synthroid 50 mcg (*)] 50 mcg PO DAILY06 11/25/16 [Last Taken ] [place]ilax-3 Fatty Acids [Fish Oil 1000 mg (*)] 1,000 mg PO BID 11/25/16 [Last Taken 2 Weeks Ago ~11/25/17] Sacubitril/Valsartan 24/26Mg [Entresto 24 mg/26 mg (RX)] 1 ea PO BID 11/25/16 [ Last Taken 12/08/17] Spironolactone [Aldactone 25 MG (*)] 12.5 mg PO DAILY 11/25/16 [Last Taken 12/08] Vit C/Dl-E AC/Lut/Copper/Znox [Preservision Softgel] 1 each PO BID 11/25/16 [ Last Taken 2 Weeks Ago ~11/25/17] diphenhydrAMINE [Benadryl 25 MG (*)] 25 mg PO HS 11/25/16 [Last Taken 2 Weeks Ago ~11/25/17] Carvedilol [Coreg (*)] 6.25 mg PO DAILY@18 02/10/17 [Last Taken 12/09/17] Furosemide [Lasix 20 MG (*)] 30 mg PO DAILY 02/10/17 [Last Taken 12/08/17] celeCOXIB [Celebrex (*)] 200 mg PO DAILY PRN 02/10/17 [Last Taken 12/08/17] Gabapentin 12/09/17 [Last Taken 12/09/17] - NPO status NPO Since - Liquids (Date): 12/09/17 NPO Since - Liquids (Time): 08:10 NPO Since - Solids (Date): 12/08/17 NPO Since - Solids (Time): 20:00 - Anes Hx Anes Hx: no prior problems - Smoking Hx Smoking Status: Never smoked Marijuana use: No - Alcohol Use Alcohol Use: Rarely - Family Anes Hx Family Anes Hx: neg - N/A Family Hx Anesthesia Complications: none ANE Labs/Vital Signs - Vital Signs Vital Signs: reviewed preoperatively; see RN documention for details Blood Pressure: 100/60 Heart Rate: 66 Respiratory Rate: 16 O2 Sat (%): 95 Height: 167.64 cm Weight: 74.843 kg ANE Physical Exam - Airway Neck exam: FROM Mallampati Score: Class 2 Mouth exam: normal dental/mouth exam - Pulmonary Pulmonary: no respiratory distress - Cardiovascular Cardiovascular: regular rate and rhythym - ASA Status ASA Status: IV ANE Anesthesia Plan Anesthesia Plan: GA w LMA, MAC, spinal (Patient last took her Eliquis 1 week ago. )
[2017-12-09] MEDS ORDERED: PROPOFOL/EMULSION 500 MG/50 ML BOTTLE IV ONE (12:16)
[2017-12-09] MEDS ORDERED: PHENYLEPHRINE HCL 100 MCG/ML SYR ONE (12:18)
[2017-12-09] MEDS ORDERED: DEXAMETHASONE 4 MG/ML VIAL ONE (12:18)
[2017-12-09] MEDS ORDERED: ONDANSETRON 4 MG/2 ML VIAL ONE (12:19)
[2017-12-09] MEDS ORDERED: DIAZEPAM 5 MG/ML 1 ML SYR IVP PRN (12:49)
[2017-12-09] MEDS ORDERED: PHENYLEPHRINE HCL 100 MCG/ML SYR IVP PRN (12:49)
[2017-12-09] MEDS ORDERED: LR 500 ML IV PRN (12:49)
[2017-12-09] MEDS ORDERED: ONDANSETRON 4 MG/2 ML VIAL IVP PRN ×2 (12:49→13:48)
[2017-12-09] MEDS ORDERED: NALOXONE HCL 0.4 MG/ML INJ IVP PRN (12:49)
[2017-12-09] MEDS ORDERED: fentaNYL 100 MCG/2 ML INJ IVP PRN (12:49)
[2017-12-09] MEDS ORDERED: MAGNESIUM HYDROXIDE 30 ML UDCUP PO PRN (13:48)
[2017-12-09] MEDS ORDERED: BISACODYL 10 MG SUPP PR PRN (13:48)
[2017-12-09] MEDS ORDERED: PROMETHAZINE HCL 25 MG/ML INJ IVP PRN (13:48)
[2017-12-09] MEDS ORDERED: DIPHENOXYLATE/ATROPINE LOMOTIL 1 TAB PO PRN (13:48)
[2017-12-09] MEDS ORDERED: ONDANSETRON DISINTEGRATING 4 MG TAB PO PRN (13:48)
[2017-12-09] MEDS ORDERED: POLYETHYLENE GLYCOL 3350 17 GM PKT PO PRN (13:48)
[2017-12-09] MEDS ORDERED: LACTULOSE 20 GM/30 ML UDCUP PO PRN (13:48)
[2017-12-09] MEDS ORDERED: METOCLOPRAMIDE 10 MG/2 ML VIAL IVP PRN (13:48)
[2017-12-09] MEDS ORDERED: diphenhydrAMINE 25 MG CAP PO PRN (13:48)
[2017-12-09] MEDS ORDERED: TEMAZEPAM 15 MG CAP PO PRN (13:48)
[2017-12-09] MEDS ORDERED: PROMETHAZINE HCL 25 MG SUPPR PR PRN (13:48)
--- NOTE | 2017-12-09 13:48 | POSTOPPROG ---
Post Op Note Date of Operation: 12/09/17 Surgeon: Drake Richardson Administrative Coordinator: rufus richardson Anesthesiologist: dr. brooks Anesthesia: Spinal Pre-op Diagnosis: left hip OA Post-op Diagnosis: same Indication: left hip pain Procedure: L PAKO ant approach Findings: severe hip OA Inf/Abcess present in the surg proc area at time of surgery?: No EBL: 100-500
[2017-12-09] MEDS ORDERED: LR 1,000 ML IV SCH (14:00)
--- NOTE | 2017-12-09 14:17 | PDHPUP ---
History & Physical Update H&P update statement: This history and physical update is based on an assessment of the patient which was completed after admission or registration (within 24 hours), but prior to the surgery/procedure. H&P update: H&P reviewed & patient examined, no change in patient's condition since H&P completed
--- NOTE | 2017-12-09 16:53 | POSTANESTH ---
Post Anesthetic Evaluation Cardiovascular Status: Normal, Stable, Similar to Pre-Op Cond Respiratory Status: Normal, Stable, Similar to Pre-op Cond. Level of Consciousness/Mental Status: Can Participate in Eval, Alert and Oriented Pain Control: Adequate, Prn Tx Ordered Nausea/Vomiting Control: Adequate, Prn Tx Ordered Complications Possibly Related to Anesthesia: None Noted
[2017-12-09] MEDS: ACETAMINOPHEN 325 MG TAB PO SCH ×2 (17:11→23:18)
[2017-12-09] MEDS: CARVEDILOL 6.25 MG TAB PO SCH (17:12)
[2017-12-09] MEDS: CYCLOBENZAPRINE 10 MG TAB PO PRN (17:12)
--- NOTE | 2017-12-09 17:56 | PDMN ---
Medical Necessity Medical necessity: [facility] [place] S560 Hip arthroplasty INPT only L PAKO
--- NOTE | 2017-12-09 20:04 | GOP ---
[f rep st] OPERATIVE REPORT DATE OF OPERATION: 12/09/2017 SURGEON: Dalila Sanchez MD NEUROSURGEON: Dalila Sanchez MD. BAT CARRIER: SUSANA King. PREOPERATIVE DIAGNOSIS: Left hip osteoarthritis. POSTOPERATIVE DIAGNOSIS: Left hip osteoarthritis. PROCEDURE PERFORMED: Total hip arthroplasty with x-ray. FINDINGS: ESTIMATED BLOOD LOSS: 200 cc. INDICATIONS: The patient has progressively worsening arthritis of the hip which has failed medical m anagement. The patient understands the treatment options including continued non-operative care and has selected surgical intervention. The patient has decided to undergo total hip arthroplasty via th e direct anterior approach, understanding the risks of the procedure including, but not limited to, n eurovascular injury, infection, persistent pain, component wear and loosening, deep venous thrombosis , pulmonary embolism, limb length inequality, hip instability (including dislocation), and intra-oper ative fractures. DESCRIPTION OF PROCEDURE: After proper identification of the patient including verification and wilner ing the surgical site, the patient was brought to the operating room and placed in the supine positio n. All bony prominences were well padded. Anesthesia was induced without complication and intraveno us prophylactic antibiotics were administered prior to skin incision. The operative leg was placed in the Trumpf Arch table extension and the well leg in a [place] leg ho lder. The patient was prepped and draped in the usual sterile fashion. The C-arm was draped for int ra-operative fluoroscopy to check acetabular position, femoral component position including leg lengt h and femoral offset. Attention was then drawn to surgical exposure of the hip. An incision was made with a #10 [place] r blade starting 3 cm lateral and 3 cm distal to the anterior superior iliac spine measuring 8-10 cm and coursing distally toward the greater trochanter. The skin and subcutaneous tissues were divided sharply down to the fascia nessa. The fascia nessa was incised in line with the skin incision exposing the underlying tensor fascia nessa muscle. The muscle was bluntly elevated from the fascia and the f irst extracapsular Cobra retractor was placed laterally at the junction of the superior femoral neck and greater trochanter. The lateral femoral circumflex vessels were identified, cauterized, and divi ded with the Aquamantys bipolar cautery. The deep investing fascia of the TFL was divided to allow p robbi mobilization of the muscle preventing damage during the retraction. The reflected head of the rectus femoris muscle was elevated off the anterior hip capsule and a medial Cobra retractor was plac ed just proximal to the lesser trochanter. The anterior capsulotomy was made sharply from the superolateral acetabulum to the saddle junction of the superior femoral neck and greater trochanter, then coursing inferomedial towards the lesser troc hanter. The retractors were then placed in the intracapsular position for femoral neck osteotomy. C orresponding to pre-operative templating, the osteotomy was made with the oscillating saw carefully p rotecting the greater trochanter and soft tissues. The femoral head was removed from the acetabulum with a corkscrew and confirmed to be severely arthritic with exposed bone, deformity and osteophytes. Similar findings were confirmed in the acetabulum. The Arch table extension was then placed in 40 degrees external rotation. Attention was then drawn to the acetabular preparation. After placement of the anterior and posterio r Cobra retractors outside the labrum and intracapsular, the circumferential labrum was removed sharp ly. The foveal contents were then removed and hemostasis obtained with cautery. The first reamer selected was sized using the removed femoral head. Reaming began with medialization and then commenced in 2 mm increments at 45 degrees of abduction and 15 degrees of anteversion using fluoroscopic navigation. Reaming ceased 1 mm less than the definitive acetabular component and marino esponded to the pre-operative templating. The final acetabular component was inserted using fluorosc opy to achieve proper orientation yielding excellent purchase and stability in the acetabulum. The f inal acetabular liner was then placed and its seating confirmed. Attention was then turned to the femur. The Arch table extension was placed in extension and adducti on, delivering the osteotomized femoral neck into the wound. A 2-pronged femoral elevator was placed at the calcar and another at the tip of the greater trochanter. The posterolateral capsule was rele ased with cautery allowing mobilization of the femur lateral and anterior for preparation. The exter nal rotators were visualized and preserved. A curette and rongeur were used to open the starting poi nt for broaching. Serial broaching started with the #0 broach and ended with the broach that exhibit ed excellent fit in the proximal femur. A change in pitch during mallet strikes was accompanied by t he inability to advance the broach any further. The trial reduction was performed and fluoroscopic n avigation was utilized to check limb length. Adjustments were made to equalize limb length according ly. After the final trials were accepted they were removed and the wound was copiously lavaged. The femo ral component was seated to the same depth as the final broach and the femoral head was impacted onto the clean trunnion. The hip was then reduced for the final time and once more fluoroscopy was used to check that limb length equality was achieved. The wound was irrigated and closed in layers, the fascia nessa with 2-0 Quill, the subcutaneous tissue with 2-0 Quill, and the skin with Dermabond. Sterile dressings were applied. Final sharps and spon ge counts were accurate. The patient was then transferred to a hospital bed and brought to the [facility] room in stable condition. IMPLANTS: Accolade II size 4 at 127, acetabular component a 54 mm Trident II. Liner is a Trident X3 , 36 mm head with Biolox Delta 36 mm, -5. /[id number]/MODL
[2017-12-09] MEDS: DOFETILIDE 0.125 MG CAP PO SCH (20:10)
[2017-12-09] MEDS: ceFAZolin 2 GM/DEXTROSE 100 ML IV SCH (20:10)
[2017-12-09] MEDS: ASPIRIN EC 81 MG TAB PO SCH (20:10)
[2017-12-09] MEDS: FAMOTIDINE 20 MG TAB PO SCH (20:10)
[2017-12-09] MEDS: SACUBITRIL/VALSARTAN 24/26MG 1 EA TAB PO SCH (20:11)
[2017-12-09] MEDS: SENNOSIDES/DOCUSATE SODIUM TAB PO SCH (20:11)
[2017-12-09] MEDS: oxyCODONE IR 5 MG TAB PO PRN ×2 (22:33→23:17)
[2017-12-10] MEDS: oxyCODONE IR 5 MG TAB PO PRN ×2 (04:13→09:04)
[2017-12-10] MEDS: ceFAZolin 2 GM/DEXTROSE 100 ML IV SCH (04:14)
[2017-12-10] MEDS: LEVOTHYROXINE 50 MCG TAB PO SCH (06:06)
[2017-12-10] MEDS: ACETAMINOPHEN 325 MG TAB PO SCH ×3 (06:06→17:31)
--- NOTE | 2017-12-10 08:52 | SOAPPROG ---
SOAP Progress Note Assessment/Plan: Assessment: Patient is doing well POD 1 s/p L PAKO Pain management: pain is well controlled on oral pain meds. VTE ppx: recommend resuming aspirin 81 mg and eliquis, cont HARSHA and SCDs Anemia: level is expected initially postop. Asymptomatic. Continue to monitor D/c planning: d/c to home today vs tomorrow pending release from PT and patient' s comfort level. patient has significant cardiomyopathy and may stay another night if she feels most comfortable for monitoring purposes. Plan: 12/10/17 08:51 Subjective: wing is doing well, states mild pain, denies SOB, chest pain and N/V. Objective: Vital Signs Temp Pulse Resp BP Pulse Ox 36.6 C 61 16 94/62 L 91 L 12/10/17 07:40 12/10/17 07:40 12/10/17 07:40 12/10/17 07:40 12/10/17 07:40 Laboratory Results 12/10/17 05:05 12/10/17 05:05 12/09/17 12/10/17 12/11/17 05:59 05:59 05:59 Intake Total 1891 Output Total 1600 200 Balance 291 -200 LLE: incision dressing is clean and dry, NVI, +pf/df ICD10 Worksheet Patient Problems: Problems Problem Status Onset Primary localized osteoarthritis of left hip Acute Arrhythmia Acute Cleft leaflet of mitral valve Acute Hypertension Acute Paroxysmal atrial fibrillation Acute S/P mitral valve repair Acute
[2017-12-10] MEDS: GABAPENTIN 100 MG CAP PO SCH ×2 (08:59→21:13)
[2017-12-10] MEDS: FUROSEMIDE 20 MG TAB PO SCH (08:59)
[2017-12-10] MEDS: DOFETILIDE 0.125 MG CAP PO SCH ×2 (08:59→21:14)
[2017-12-10] MEDS: CARVEDILOL 3.125 MG TAB PO SCH (09:00)
[2017-12-10] MEDS: FAMOTIDINE 20 MG TAB PO SCH ×2 (09:00→21:14)
[2017-12-10] MEDS: APIXABAN 5 MG TAB PO SCH ×2 (09:00→21:13)
[2017-12-10] MEDS: SACUBITRIL/VALSARTAN 24/26MG 1 EA TAB PO SCH ×2 (09:03→21:16)
[2017-12-10] MEDS: SPIRONOLACTONE 25 MG TAB PO SCH (09:04)
[2017-12-10] MEDS: SENNOSIDES/DOCUSATE SODIUM TAB PO SCH ×2 (09:04→21:14)
[2017-12-10] MEDS ORDERED: GABAPENTIN 100 MG CAP PO SCH (12:00)
[2017-12-10] MEDS: CARVEDILOL 6.25 MG TAB PO SCH (17:32)
[2017-12-10] MEDS: ASPIRIN EC 81 MG TAB PO SCH (21:12)
[2017-12-11] MEDS: ACETAMINOPHEN 325 MG TAB PO SCH ×2 (00:07→06:03)
[2017-12-11] MEDS: oxyCODONE IR 5 MG TAB PO PRN ×2 (00:35→09:26)
[2017-12-11] MEDS: CYCLOBENZAPRINE 10 MG TAB PO PRN (04:27)
[2017-12-11] MEDS: LEVOTHYROXINE 50 MCG TAB PO SCH (06:03)
[2017-12-11] MEDS: SACUBITRIL/VALSARTAN 24/26MG 1 EA TAB PO SCH (09:24)
[2017-12-11] MEDS: FAMOTIDINE 20 MG TAB PO SCH (09:24)
[2017-12-11] MEDS: GABAPENTIN 100 MG CAP PO SCH (09:24)
[2017-12-11] MEDS: DOFETILIDE 0.125 MG CAP PO SCH (09:24)
[2017-12-11] MEDS: SENNOSIDES/DOCUSATE SODIUM TAB PO SCH (09:24)
[2017-12-11] MEDS: FUROSEMIDE 20 MG TAB PO SCH (09:25)
[2017-12-11] MEDS: APIXABAN 5 MG TAB PO SCH (09:25)
[2017-12-11] MEDS: SPIRONOLACTONE 25 MG TAB PO SCH (09:25)
[2017-12-11] MEDS: CARVEDILOL 3.125 MG TAB PO SCH (09:26)
--- NOTE | 2017-12-11 10:34 | PDCARCONS ---
Cardiology Consult Reason for Consult: Hypotension. Chief Complaint: No cardiac complaints Requesting Physician: Dr. Sanchez History of Present Illness: Angela is a 62-year-old female with a history of cardiomyopathy, CHF, LBBB, hypertension, mitral regurgitation s/p repair, atrial fibrillation, pulmonary hypertension, and has a defibrillator in place. Angela had a left hip replacement performed by Dr. Sanchez. She tolerated the surgery well. Prior to being discharged, her blood pressure increased. She received Entresto which significantly dropped her blood pressure to 76 mmHg systolic. Her hemoglobin has dropped from 12 to 9.5 today. The patient has no cardiac complaints at this time. She denies lightheadedness, near syncope, syncope, or other cardiac symptoms of concern. History Information - Allergies/Home Medication List Allergies/Adverse Reactions: No Known Allergies Allergy (Verified 11/25/16 13:36) Home Medications: Aspirin EC [Aspirin EC 81 mg (*)] 81 mg PO HS 11/25/16 [Last Taken 1 Week Ago ~ 12/02/17] Carvedilol [Coreg (*)] 3.125 mg PO DAILY 11/25/16 [Last Taken 12/09/17] Docusate Sodium [Colace 100 MG (*)] 100 mg PO HS 11/25/16 [Last Taken 2 Weeks Ago ~11/25/17] Herbals/Supplements -Info Only 1 ea PO DAILY 11/25/16 [Last Taken 2 Weeks Ago ~ 11/25/17] Levothyroxine [Synthroid 50 mcg (*)] 50 mcg PO DAILY06 11/25/16 [Last Taken ] [place]-3 Fatty Acids [Fish Oil 1000 mg (*)] 1,000 mg PO BID 11/25/16 [Last Taken 2 Weeks Ago ~11/25/17] Sacubitril/Valsartan 24/26Mg [Entresto 24 mg/26 mg (RX)] 1 ea PO BID 11/25/16 [ Last Taken 12/08/17] Spironolactone [Aldactone 25 MG (*)] 12.5 mg PO DAILY 11/25/16 [Last Taken 12/08] Vit C/Dl-E AC/Lut/Copper/Znox [Preservision Softgel] 1 each PO BID 11/25/16 [ Last Taken 2 Weeks Ago ~11/25/17] diphenhydrAMINE [Benadryl 25 MG (*)] 25 mg PO HS PRN 11/25/16 [Last Taken 2 Weeks Ago ~11/25/17] Carvedilol [Coreg (*)] 6.25 mg PO DAILY@18 02/10/17 [Last Taken 12/09/17] Furosemide [Lasix 20 MG (*)] 30 mg PO DAILY 02/10/17 [Last Taken 12/08/17] Gabapentin [Neurontin 100 MG (*)] 200 mg PO BID 12/09/17 [Last Taken 12/09/17] Gabapentin [Neurontin 100 MG (*)] 200 mg PO DAILY@12 12/09/17 [Last Taken ] I have personally reviewed and updated: family history, medical history, social history, surgical history Past Medical History: Pulmonary hypertension, Mitral regurgitation - Past Medical History atrial fibrillation, coronary artery disease, CHF, hypertension, myocardial infarction - Surgical History Reports: pacemaker/AICD, vascular surgery Additional surgical history: Recent left hip replacement. MR repair. Defibrillator - Family History Positive for: CAD - Social History Smoking Status: Never smoked Alcohol Use: Rarely Drug Use: None Additional social history: , husban at bedside. Cardiac History - Cardiac History Past Cardiac History: CAD, MVR, ICD, OTHER (Atrial fibrillation, CHF, non- ischemic cardiomyopathy, hypertension) Cardiac Risk Factors: hypertension (>140/90), lipidemia BENJAMIN Risk Evaluation age greater or equal to 65: no greater or equal to 3 CAD risk factors: yes known CAD(stenosis greater or eqaul to 50%): yes ASA use in past 7 days: yes severe angina(greater or equal to 2 episodes in 24hrs): no EKG ST changes greater or equal to 0.5mm: no positive cardiac marker: no Total Score: 3 BENJAMIN Score: 13.2% risk Physical Exam Physical Exam: Temp Pulse Resp BP Pulse Ox 36.9 C 71 16 104/57 L 92 12/11/17 07:46 12/11/17 09:26 12/11/17 07:46 12/11/17 09:26 12/11/17 07:46 O2 (L/minute) 1 Constitutional: no apparent distress, appears nourished Eyes: PERRL, anicteric sclera Ears, Nose, Mouth, Throat: moist mucous membranes Cardiovascular: regular rate and rhythym, systolic murmur Respiratory: no respiratory distress, no rales or rhonchi, clear to auscultation Gastrointestinal: normoactive bowel sounds, soft, non-tender abdomen Genitourinary: no bladder fullness Skin: warm, normal color Musculoskeletal: other (Left hip has tenderness to palpation with surrounding ecchymosis) Neurologic: AAOx3 Psychiatric: interacting appropriately Lab and Imaging 12/11/17 04:38 12/10/17 05:05 Hgb 9.5 g/dL (12.6-16.3) L 12/11/17 04:38 Hct 27.8 % (38.0-47.0) L 12/11/17 04:38 Sodium 134 mEq/L (135-145) L 12/10/17 05:05 Potassium 4.7 mEq/L (3.3-5.0) 12/10/17 05:05 Chloride 101 mEq/L (97-110) 12/10/17 05:05 Carbon Dioxide 26 mEq/l (22-31) 12/10/17 05:05 Anion Gap 7 mEq/L (8-16) L 12/10/17 05:05 BUN 27 mg/dL (7-23) H 12/10/17 05:05 Creatinine 0.9 mg/dL (0.6-1.0) 12/10/17 05:05 Estimated GFR > 60 12/10/17 05:05 Glucose 144 mg/dL (70-100) H 12/10/17 05:05 Calcium 8.9 mg/dL (8.5-10.4) 12/10/17 05:05 Telemetry: Patient was not placed on telemetry monitoring. A/P Assessment: Angela underwent recent left hip replacement by Dr. Sanchez. Prior to discharge she received her prescribed Entresto for hypertension. Her blood pressure then dropped significantly (70 mmHg systolic). Angela's systolic blood pressure tends to be in the 80mmHg range. She denies associated lightheadedness , near syncope or syncope. I recommend that the patient refrain from taking her Entresto if her systolic pressure is below 85 mmHg. I reviewed her lab work. Her BUN and creatinine are normal. Her hemoglobin dropped from 12 to 9.5. I recommend she increase her iron intake in her food to improve her Hemoglobin level. Angela is doing well from a cardiac standpoint. I will see her in my office for follow up in February. Plan: The patient is doing well from a cardiac standpoint and is safe for discharge home. I will see her in my office for follow up in February.
--- NOTE | 2017-12-11 11:11 | SOAPPROG ---
SOAP Progress Note Assessment/Plan: Assessment: Patient is doing well POD 2 s/p L PAKO Pain management: pain is well controlled on oral pain meds. VTE ppx: recommend resuming aspirin 81 mg and eliquis, cont HARSHA and SCDs Anemia: level is expected initially postop. 11.6 prior to surgery and today 9.5HgB. Asymptomatic. Continue to monitor D/c planning: d/c to home today Plan: 12/10/17 08:51 12/11/17 11:10 Subjective: wing is doing well, denies SOB ,chest pain and lightheadedness. Objective: Vital Signs Temp Pulse Resp BP Pulse Ox 36.9 C 71 16 104/57 L 92 12/11/17 07:46 12/11/17 09:26 12/11/17 07:46 12/11/17 09:26 12/11/17 07:46 Laboratory Results 12/11/17 04:38 12/10/17 05:05 12/10/17 12/11/17 12/12/17 05:59 05:59 05:59 Intake Total 1891 3325 350 Output Total 1600 2650 600 Balance 291 675 -250 LLE: incision dressing is clean and dry ICD10 Worksheet Patient Problems: Problems Problem Status Onset Primary localized osteoarthritis of left hip Acute Arrhythmia Acute Cleft leaflet of mitral valve Acute Hypertension Acute Paroxysmal atrial fibrillation Acute S/P mitral valve repair Acute
[2017-12-11 12:32] VITALS: BP 87/50
== END 2017-12-11 13:55 | disposition home or self-care (01) | DRG 470 ==
LOC: F3N 09:56
PROVIDERS: ADMIT Orthopaedic Surgery; ATTEND Orthopaedic Surgery
PROC: 0SRB04A Replacement of Left Hip Joint with Ceramic on Polyethylene Synthetic Substitute, Uncemented, Open Approach (ICD-10-PCS; principal; 2017-12-09 12:15)
DX: M16.12 Unilateral primary osteoarthritis, left hip (principal); I10 Essential (primary) hypertension; Z95.810 Presence of automatic (implantable) cardiac defibrillator; I42.9 Cardiomyopathy, unspecified; I25.10 Atherosclerotic heart disease of native coronary artery without angina pectoris; I25.2 Old myocardial infarction; I48.91 Unspecified atrial fibrillation; I44.7 Left bundle-branch block, unspecified
CPT/HCPCS: 97110-GP; 97161-GP; 97165-GO; J0171; J0690; J1100; J1885; J2370; J2405; J2704; J2795

== ENCOUNTER 2018-03-31 15:01 | Emergency (ER) | payer OTHER ==
[2018-03-31] MEDS ORDERED: NS 500 ML IV ONE (16:24)
[2018-03-31] MEDS ORDERED: HYOSCYAMINE SULFATE 0.125 MG TAB PO ONE ×2 (17:15→17:47)
--- NOTE | 2018-03-31 17:16 | EDPHY ---
H & P Stated Complaint: since 3am rectal bleeding w clots BRB . On Eliquis Time Seen by Provider: 03/31/18 15:19 HPI/ROS: This patient reports some bright red blood in her stool after 3 days of loose watery diarrhea. Her bleeding occurred at 3:00 a.m.. She describes some small moderate bright red blood and some clots that sink to the bottom of the toilet but did not fill the toilet bowl. She feels that her loose stool is slowing down but does persist intermittently still a small amounts of blood. Her has a similar diarrheal illness over the past 3 days with no hematochezia. She denies any other associated symptoms but she called her primary care physician recommended a visit to the emergency department based on her symptoms. Her drove her here by private vehicle. ROS: Constitutional: No fevers or chills. No fatigue. HEENT: No URI symptoms Pulmonary: No cough shortness of breath Cardiovascular: She denies any chest pain heart palpitations or lightheadedness GI: No significant abdominal pain currently that she had some moderate to severe cramping or lower belly earlier that occurred just prior to having bowel movements. : No urinary symptoms. Integumentary: No complaints 10 point review of symptoms is performed and otherwise negative with exception of pertinent positives and negatives listed in HPI and ROS Source: Patient, Family (She is accompanied by her also provides history ) Exam Limitations: No limitations - Personal History Current Tetanus/Diphtheria Vaccine: Unsure Current Tetanus Diphtheria and Acellular Pertussis (TDAP): Unsure - Medical/Surgical History Hx Asthma: No Hx Chronic Respiratory Disease: No Hx Diabetes: No Hx Cardiac Disease: Yes Hx Renal Disease: No Hx Cirrhosis: No Hx Alcoholism: No Hx HIV/AIDS: No Hx Splenectomy or Spleen Trauma: No Other PMH: mitral valve repair w/ring, trcuspid valve ring 12-14, afib with cardioversion x3, PPM november 2014, battery recalled, gen change and new lead 2015 , CHF. nocturnal o2, has been using x 2 nights and evenings//. hyst, lumpectomy w radiation. Colonoscopy 6 years ago-normal per patient - Family History Significant Family History: No pertinent family hx - Social History Smoking Status: Never smoked Alcohol Use: None Drug Use: None - Physical Exam Exam: General Appearance: Alert, no distress. Eyes: Pupils equal and round no pallor or injection. ENT, Mouth: Mucous membranes moist. Respiratory: There are no retractions, lungs are clear to auscultation. Cardiovascular: Regular rate and rhythm. Gastrointestinal: Mildly hyperactive bowel sounds, soft, nontender. No distension Back: No CVA tenderness Rectal exam: No stool in the vault. Heme negative on stool occult testing. No external hemorrhoids. No significant tenderness. Neurological: GCS 15 Skin: Warm and dry, no rashes. Musculoskeletal: Neck is supple nontender. Extremities are symmetrical, full range of motion. Psychiatric: Mood and affect normal DIFFERENTIAL DIAGNOSIS: After history and physical exam differential diagnosis was considered for infectious diarrhea, dehydration, Eliquis related coagulopathy Constitutional: Initial Vital Signs Temperature (C) 37.1 C 03/31/18 15:10 Heart Rate 67 03/31/18 15:10 Respiratory Rate 16 03/31/18 15:10 Blood Pressure 102/54 L 03/31/18 15:10 O2 Sat (%) 94 03/31/18 15:10 O2 Delivery Mode Room Air Allergies/Adverse Reactions: No Known Allergies Allergy (Verified 03/31/18 15:09) Home Medications: Medication Instructions Recorded Aspirin EC [Aspirin EC 81 mg (*)] 81 mg PO HS 11/25/16 Carvedilol [Coreg (*)] 3.125 mg PO DAILY 11/25/16 Docusate Sodium [Colace 100 MG (*)] 100 mg PO HS 11/25/16 Herbals/Supplements -Info Only 1 ea PO DAILY 11/25/16 Levothyroxine [Synthroid 50 mcg 50 mcg PO DAILY06 11/25/16 (*)] [place]-3 Fatty Acids [Fish Oil 1000 1,000 mg PO BID 11/25/16 mg (*)] Sacubitril/Valsartan 24/26Mg 1 ea PO BID 11/25/16 [Entresto 24 mg/26 mg (RX)] Spironolactone [Aldactone 25 MG 12.5 mg PO DAILY 11/25/16 (*)] Vit C/Dl-E AC/Lut/Copper/Znox 1 each PO BID 11/25/16 [Preservision Softgel] diphenhydrAMINE [Benadryl 25 MG 25 mg PO HS PRN 11/25/16 (*)] Apixaban [Eliquis] 5 mg PO BID #60 tablet 11/26/16 Carvedilol [Coreg (*)] 6.25 mg PO DAILY@18 02/10/17 Furosemide [Lasix 20 MG (*)] 30 mg PO DAILY 02/10/17 Dofetilide [Tikosyn 0.125 MG (*)] 0.125 mg PO BID #60 cap 02/12/17 Gabapentin [Neurontin 100 MG (*)] 200 mg PO BID 12/09/17 Gabapentin [Neurontin 100 MG (*)] 200 mg PO DAILY@12 12/09/17 Acetaminophen [Tylenol 325mg (*)] 650 mg PO Q6HRS tab 12/10/17 Cyclobenzaprine [Flexeril 10 MG 10 mg PO Q8HRS PRN tab 12/10/17 (*)] Polyethylene Glycol 3350 [Miralax 17 gm PO DAILY PRN pkt 12/10/17 17 gm (*)] Sennosides/Docusate Sodium 1 - 2 tab PO BID tab 12/10/17 [Senokot-S] celeCOXIB [Celebrex (*)] 200 mg PO DAILY cap 12/10/17 oxyCODONE IR [Oxycodone Ir (*)] 5 - 10 mg PO Q3HRS PRN tab 12/10/17 Hyoscyamine Sulfate [Levsin, 0.125 - 0.25 mg SL Q6 PRN #20 tab 03/31/18 Hyomax-Sl 0.125 mg (*)] Medical Decision Making ED Course/Re-evaluation: IV, labs drawn After review of labs for creatinine slightly elevated patient is given a slow 500 cc bolus over 30 min noting past history of CH F. She tolerated this well. She had no significant cramping while here in the emergency department I spoke with Dr. Curry on-call for Dr. Esquivel, her primary substance abuse counselor who agrees with plan to continue the Eliquis 5 mg twice daily. The patient provide a stool sample sent for PCR testing. Discussion: Given her also has diarrhea at this time that is nonbloody I suspect this patient has an infectious diarrhea with mild bleeding attributable to her Eliquis. I reviewed her labs with INR only slightly elevated, CBC normal with no anemia and counseled patient regarding this. I explained that most hematochezia resolved without further intervention. She has no orthostasis or other red flag findings I think is safe for discharge home with Levsin for cramping if needed. She is encouraged to follow up with Gastroenterology for another colonoscopy as an outpatient. Return she understands need to return emergency department should she have any significant worsening of her symptoms despite the treatment plan. - Data Points Laboratory Results: 03/31/18 03/31/18 15:39 15:30 PT 17.2 SEC H SEC (12.0-15.0) INR 1.39 H (0.83-1.16) APTT 31.8 SEC SEC (23.0-38.0) POC Sodium 137 mEq/L mEq/L (135-145) POC Potassium 3.7 mEq/L mEq/L (3.3-5.0) POC Chloride 99.0 mEq/L mEq/L (97-110) POC Total CO2 24 mEq/L mEq/L (22-31) POC BUN 22 mg/dL mg/dL (7-23) POC Creatinine 1.2 mg/dL H mg/dL (0.6-1.0) POC Glucose 123 mg/dL H mg/dL (70-100) POC Calcium 9.4 mg/dL mg/dL (8.5-10.4) Microbiology Results: MICROBIOLOGY 03/31/18 18:00 Stool Gastrointestinal Tract Panel (PCR) - Final No Organism Detected Medications Given: Discontinued Medications Hyoscyamine Sulfate (Levsin, Hyomax-Sl) 0.25 mg PO EDNOW ONE Stop: 03/31/18 17:16 Last Admin: 03/31/18 17:52 Dose: 0.25 mg Hyoscyamine Sulfate (Levsin, Hyomax-Sl) 0.125 mg PO EDNOW ONE Stop: 03/31/18 17:48 Last Admin: 03/31/18 17:54 Dose: Not Given Sodium Chloride (Ns) 500 mls @ 1,000 mls/hr IV EDNOW ONE PRN Reason: Protocol Stop: 03/31/18 16:53 Last Admin: 03/31/18 16:30 Dose: 500 mls Point of Care Test Results: CBC CBC Collection Date 03/31/18 CBC Collection Time 15:30 WBC 7.4 RBC 3.72 HGB 11.8 HCT 34.3 PLT 164 Neut # 6.3 Neut 85.9 LYMPH # 0.7 LYMPH 9.3 Other WBC # 0.4 Other WBC 4.8 MCV 92.2 Chemistry 03/31/18 15:39 POC Sodium 137 mEq/L mEq/L (135-145) POC Potassium 3.7 mEq/L mEq/L (3.3-5.0) POC Chloride 99.0 mEq/L mEq/L (97-110) POC Total CO2 24 mEq/L mEq/L (22-31) POC BUN 22 mg/dL mg/dL (7-23) POC Creatinine 1.2 mg/dL H mg/dL (0.6-1.0) POC Glucose 123 mg/dL H mg/dL (70-100) POC Calcium 9.4 mg/dL mg/dL (8.5-10.4) Occult Blood Occult Blood Collection Date 03/31/18 Occult Blood Collection Time 17:10 Occult Blood Result Negative/Negative Departure - Departure Disposition: Home, Routine, Self-Care Clinical Impression: Hematochezia Diarrhea Qualifiers: Diarrhea type: presumed infectious Qualified Code(s): R19.7 - Diarrhea, unspecified Condition: Good Instructions: Hyoscyamine (By mouth), Rectal Bleeding (ED), Acute Diarrhea (ED) Additional Instructions: Diagnosis: 1. Acute diarrhea 2. Hematochezia Plan: Light diet until you feel improved-bananas, rice, soup, applesauce, toast and similar Levsin if needed for abdominal cramping Typically this bleeding resolved over the course of 12:48 p.m.. Call the your antisqueak applier or the GI doc listed below to arrange follow- up appointment for further evaluation as an outpatient Return emergency department if you developed onset of vomiting, significant increase in rectal bleeding or other concerns. Referrals: Kalpana Oh MD [Primary Care Provider] - As per Instructions Abhishek Benz MD [Medical Doctor] - As per Instructions Prescriptions: Hyoscyamine Sulfate [Levsin, Hyomax-Sl 0.125 mg (*)] 0.125 - 0.25 mg SL Q6 PRN # 20 tab PRN Reason: abdominal cramping
[2018-03-31 17:19] LABS: INR 1.39 (0.83-1.16); PROTIME(PATIENT) 17.2 SEC (12.0-15.0)
[2018-03-31 18:08] VITALS: BP 93/63
== END 2018-03-31 18:09 | disposition home or self-care (01) ==
LOC: CED 15:01
DX: R19.7 Diarrhea, unspecified (principal); K92.1 Melena
CPT/HCPCS: 80048-PO

== ENCOUNTER → 2018-04-08 | Outpatient (CLI) | payer OTHER | LOC: CIMAGING 10:12 | PROVIDERS: ATTEND Internal Medicine | DX: Z12.31 Encounter for screening mammogram for malignant neoplasm of breast (principal) ==

== ENCOUNTER → 2018-10-06 | Day surgery (SDC) | payer OTHER ==
[~2018-10-06] MED LIST changes: +ATROPINE SULFATE 1 MG/10 ML SYR IVP ONE; +MIDAZOLAM 2 MG/2 ML VIAL IVP ONE; +NS 500 ML IV ONE; +PROPOFOL 200 MG/20 ML VIAL ONE; -ROPIVACAINE 0.2% 80 MG, EPINEPHrine 0.2 MG, KETOROLAC TROMETHAMINE 30 MG in SYRINGE 0 ML IU ONE; -TRANEXAMIC ACID 3,000 MG in NS (SYRINGE) 50 ML IRR ONE; -TRANEXAMIC ACID 3,000 MG/50 ML BAG IRR ONE; +fentaNYL 100 MCG/2 ML INJ IVP ONE
--- NOTE | 2018-10-06 14:12 | PDPROPOC ---
Sedation Plan of Care Sedation Plan of Care: mental status noted, patient educated of risks, benefits , alternatives, patient can tolerate sedation ASA Classification: ASA 2 Planned drugs: other Mallampati Score: Class 2 Mallampati Reference Image: Patient passed 3-3-2 rule?: Yes
--- NOTE | 2018-10-06 14:36 | PDANEPAE ---
ANE History of Present Illness 63 yo for cv ANE Past Medical History - Cardiovascular History Hx Hypertension: Yes Hx Arrhythmias: Yes Hx Chest Pain: No Hx Coronary Artery / Peripheral Vascular Disease: No Hx CHF / Valvular Disease: Yes Hx Palpitations: No Cardiovascular History Comment: mitral regurgitation. cardiomyopathy. tricupsid regurgitation. secondary pulm htn. pt BP runs 80/50 is normal for pt. Dr Esquivel wants to keep SBP less than 100 - Pulmonary History Hx COPD: No Hx Asthma/Reactive Airway Disease: No Hx Recent Upper Respiratory Infection: No Hx Oxygen in Use at Home: Yes Hx Sleep Apnea: No Pulmonary History Comment: PHTN - Neurologic History Hx Cerebrovascular Accident: No Hx Seizures: No Hx Dementia: No - Endocrine History Hx Diabetes: No Endocrine History Comment: hypothyroidism - Renal History Hx Renal Disorders: No - Liver History Hx Hepatic Disorders: No - Neurological & Psychiatric Hx Hx Neurological and Psychiatric Disorders: No - Cancer History Hx Cancer: Yes Cancer History Comment: right breast with lumpectomy in 1988 with radiation and lumpectomy 29 lymph nodes removed - Congenital Disorder History Hx Congenital Disorders: No - GI History Hx Gastrointestinal Disorders: No Gastrointestinal History Comment: takes a stool softner every night - Other Health History Other Health History: NONE - Chronic Pain History Chronic Pain: No (left shoulder and left hip pain d/t arthritis, L hip) - Surgical History Prior Surgeries: wisdom teeth extracted at 16 years old. tubal at 27 years old. right breast lumpectomy and 29 lymph nodes with radiation in 1988. 2002 hysterectomy lap abd. may 2014 annulus to mitral and tricuspid valve. november 2014 aicd/ppm ANE Review of Systems Review of Systems: - Exercise capacity METS (RN): 3 METS - Pacemaker Date Pacemaker Last Checked: 07/04/17 ANE Patient History - Allergies Allergies/Adverse Reactions: No Known Allergies Allergy (Verified 03/31/18 15:09) - Home Medications Home medications: home medication list seen and reviewed Home Medications: Aspirin EC [Aspirin EC 81 mg (*)] 81 mg PO HS 11/25/16 [Last Taken 1 Week Ago ~ 12/02/17] Carvedilol [Coreg (*)] 3.125 mg PO DAILY 11/25/16 [Last Taken 12/09/17] Docusate Sodium [Colace 100 MG (*)] 100 mg PO HS 11/25/16 [Last Taken 2 Weeks Ago ~11/25/17] Herbals/Supplements -Info Only 1 ea PO DAILY 11/25/16 [Last Taken 2 Weeks Ago ~ 11/25/17] Levothyroxine [Synthroid 50 mcg (*)] 50 mcg PO DAILY06 11/25/16 [Last Taken ] [place]-3 Fatty Acids [Fish Oil 1000 mg (*)] 1,000 mg PO BID 11/25/16 [Last Taken 2 Weeks Ago ~11/25/17] Sacubitril/Valsartan 24/26Mg [Entresto 24 mg/26 mg (RX)] 1 ea PO BID 11/25/16 [ Last Taken 12/08/17] Spironolactone [Aldactone 25 MG (*)] 12.5 mg PO DAILY 11/25/16 [Last Taken 12/08] Vit C/Dl-E AC/Lut/Copper/Znox [Preservision Softgel] 1 each PO BID 11/25/16 [ Last Taken 2 Weeks Ago ~11/25/17] diphenhydrAMINE [Benadryl 25 MG (*)] 25 mg PO HS PRN 11/25/16 [Last Taken 2 Weeks Ago ~11/25/17] Carvedilol [Coreg (*)] 6.25 mg PO DAILY@18 02/10/17 [Last Taken 12/09/17] Furosemide [Lasix 20 MG (*)] 30 mg PO DAILY 02/10/17 [Last Taken 12/08/17] Gabapentin [Neurontin 100 MG (*)] 200 mg PO BID 12/09/17 [Last Taken 12/09/17] Gabapentin [Neurontin 100 MG (*)] 200 mg PO DAILY@12 12/09/17 [Last Taken ] - NPO status NPO Status: no food or drink >8 hours - Smoking Hx Smoking Status: Never smoked - Family Anes Hx Family Hx Anesthesia Complications: none ANE Labs/Vital Signs - Vital Signs Height: 5 ft 6 in Weight: 71.668 kg ANE Physical Exam - Airway Neck exam: FROM Mallampati Score: Class 2 Mouth exam: normal dental/mouth exam - Pulmonary Pulmonary: no respiratory distress - Cardiovascular Cardiovascular: regular rate and rhythym - ASA Status ASA Status: III ANE Anesthesia Plan Anesthesia Plan: GA with mask
--- NOTE | 2018-10-06 15:04 | CPIP ---
[f rep st] INVASIVE CARDIAC PROCEDURE DATE OF PROCEDURE: 10/06/2018 PROCEDURE: Cardioversion. INDICATIONS FOR PROCEDURE: Atrial fibrillation. DESCRIPTION OF PROCEDURE: As per [facility] protocol, the patient was brought in a fasting state to [facility]. T he patient was assessed by Anesthesia and an [employer] pacemaker artists' booking representative, which revealed the jose ent was in underlying atrial fibrillation from her paced rhythm. The patient was sedated by anesthes ia with propofol. After appropriate sedation, the patient was cardioverted with synchronized 200 amrita les with one defibrillation. After the single defibrillation, the patient was back into normal sinus rhythm as confirmed by ECG as well as by pacemaker interrogation. The patient tolerated the procedu re well with no complications. IMPRESSION: Successful cardioversion with 200 joules for symptomatic atrial fibrillation to sinus rh ythm. PLAN: The patient will remain on her home medications including Eliquis. She will follow up with Dr Jami Esquivel in the office in 1 week's time. /[id number]/MODL
--- NOTE | 2018-10-07 08:29 | POSTANESTH ---
Post Anesthetic Evaluation Cardiovascular Status: Normal, Stable Respiratory Status: Normal, Stable Level of Consciousness/Mental Status: Can Participate in Eval Pain Control: Adequate, Prn Tx Ordered Nausea/Vomiting Control: Adequate, Prn Tx Ordered Complications Possibly Related to Anesthesia: None Noted
--- NOTE | 2018-10-07 19:36 | CPEKG ---
Test Reason : OPEN Blood Pressure : / mmHG Vent. Rate : 089 BPM Atrial Rate : 127 BPM P-R Int : 080 ms QRS Dur : 157 ms QT Int : 447 ms P-R-T Axes : 000 -28 -28 degrees QTc Int : 544 ms Afib/flut and V-paced complexes IVCD, consider atypical RBBB Left ventricular hypertrophy Prolonged QT interval Confirmed by Amadou Hook ([id number]) on 10/07/2018 7:36:09 PM Referred By: Tristan Davila Confirmed By:Amadou Hook
--- NOTE | 2018-10-07 19:36 | CPEKG ---
Test Reason : OPEN Blood Pressure : / mmHG Vent. Rate : 062 BPM Atrial Rate : 060 BPM P-R Int : 169 ms QRS Dur : 139 ms QT Int : 500 ms P-R-T Axes : 035 095 182 degrees QTc Int : 508 ms Atrial-ventricular dual-paced complexes Confirmed by Amadou Hook ([id number]) on 10/07/2018 7:36:19 PM Referred By: Tristan Davila Confirmed By:Amadou Hook
== END | disposition home or self-care (01) ==
LOC: FCATH 13:51
PROVIDERS: ATTEND Internal Medicine Cardiovascular Disease
PROC: 5A2204Z Restoration of Cardiac Rhythm, Single (ICD-10-PCS; principal; 2018-10-06)
DX: I48.91 Unspecified atrial fibrillation (principal); I50.22 Chronic systolic (congestive) heart failure; I27.29 Other secondary pulmonary hypertension; I95.9 Hypotension, unspecified; I42.9 Cardiomyopathy, unspecified; I11.0 Hypertensive heart disease with heart failure; I44.7 Left bundle-branch block, unspecified; E03.9 Hypothyroidism, unspecified; I34.0 Nonrheumatic mitral (valve) insufficiency; Z79.01 Long term (current) use of anticoagulants; Z85.3 Personal history of malignant neoplasm of breast; Z92.3 Personal history of irradiation; Z95.810 Presence of automatic (implantable) cardiac defibrillator; Z95.2 Presence of prosthetic heart valve
CPT/HCPCS: J0461; J2704